=== PATIENT | male | born 1955 | race Caucasian/White ===

== ENCOUNTER 2023-03-12 08:05 | Day surgery (SDC) | payer MEDICARE ==
[2023-03-05 13:26] VITALS: BMI 26.1
--- NOTE | 2023-03-12 07:47 | P.GSHP ---
History of Present Illness H&P Date: 03/12/23 CHIEF COMPLAINT: Colon screen HISTORY OF PRESENT ILLNESS: The patient is a 67-year-old male who presents for colon screen. Lower endoscopy was offered for further evaluation and management. PAST MEDICAL HISTORY: Please see list. PAST SURGICAL HISTORY: Please see list. MEDICATIONS: Please see list. ALLERGIES: Please see list. SOCIAL HISTORY: No illicit drug use FAMILY HISTORY: No reports of Crohn disease or ulcerative colitis. REVIEW OF ORGAN SYSTEMS: CONSTITUTIONAL: No reports of fevers or chills. PHYSICAL EXAM: VITAL SIGNS: Stable GENERAL: Well-developed pleasant in no acute distress. HEENT: No scleral icterus. Extraocular movements grossly intact. Moist buccal mucosa. NECK: Supple without lymphadenopathy. CHEST: Unlabored respirations. Equal bilateral excursions. CARDIOVASCULAR: Regular rate and rhythm. Distal 2+ pulses. ABDOMEN: Soft, nontender, nondistended. MUSCULOSKELETAL: No clubbing, cyanosis, or edema. ASSESSMENT: 1. Colon screen. PLAN: 1. Recommend proceeding with a lower endoscopy Past Medical History Past Medical History: Thyroid Disorder Additional Past Medical History / Comment(s): crohns diseasem ,tinnitus ,and menieres disease, may have a cataracy History of Any Multi-Drug Resistant Organisms: None Reported Past Surgical History: Hernia Repair Past Anesthesia/Blood Transfusion Reactions: No Reported Reaction Additional Past Anesthesia/Blood Transfusion Reaction / Comment(s): no blood transfusion Smoking Status: Former smoker - Past Family History Mother Family Medical History: Cancer Additional Family Medical History / Comment(s): colon Medications and Allergies Home Medications Medication Instructions Recorded Confirmed Type Iron 18 mg PO DAILY 03/05/23 03/05/23 History Levothyroxine Sodium 25 mcg PO DAILY 03/05/23 03/05/23 History Loperamide [Imodium] 2 mg PO DAILY 03/05/23 03/05/23 History Multivitamin [Multivitamins Adult 1 each PO DAILY 03/05/23 03/05/23 History Gummies] Naproxen Sodium [Aleve] 220 mg PO DAILY 03/05/23 03/05/23 History Allergies Allergy/AdvReac Type Severity Reaction Status Date / Time No Known Allergies Allergy Verified 03/05/23 13:05
[~2023-03-12 08:05] MED LIST: LACTATED RINGERS 1,000 ML IV SCH
[2023-03-12] MEDS ORDERED: LACTATED RINGERS 1,000 ML IV ONE (08:21)
[2023-03-12 08:40] VITALS: TEMP 97.9
[2023-03-12] MEDS ORDERED: PROPOFOL 10 MG/ML 20 ML VIAL IV ONE (09:09)
--- NOTE | 2023-03-12 10:12 | P.PCN ---
Date of Procedure: 03/12/23 Description of Procedure: PREOPERATIVE DIAGNOSIS: Abnormal stool test, Cologuard Crohn's disease POSTOPERATIVE DIAGNOSIS: Tubular adenoma appendix Tubular adenoma ascending colon Sigmoid diverticulosis Crohn's disease OPERATION: Colonoscopy to the ileocecal valve and appendiceal orifice, cecum Colonoscopy with hot snare polypectomy SURGEON: Daisy Chahal MD. ANESTHESIA: MAC. INDICATIONS: The patient is an 67-year-old male who presents with normal stool test and Crohn's disease. Benefits and risks were described and informed consent was obtained. DESCRIPTION OF PROCEDURE: The patient had undergone Golytely prep. The patient had been brought into the operating room and laid in the left lateral decubitus position. After adequate intravenous sedation, the rectum was examined with 2% lidocaine jelly. The prostate was unremarkable. External hemorrhoids were encountered. The rectal to ne was within normal limits. No lesions were palpated in the rectal vault. An Olympus colonoscope was advanced until the cecum, ileocecal valve and appendiceal orifice were clearly viewed. The prep was good. Sigmoid diverticulosis was encountered. Colonic polyps were found and removed. No evidence of focal colitis was found. Retroflexion of the scope demonstrated grade 2 internal hemorrhoids without active bleeding or inflammation. The colon was desufflated. The patient had tolerated the procedure well. Withdrawal time was over 6 minutes. FINDINGS: Aronchick preparation quality scale 2 (1-5) Internal hemorrhoids, grade 2 External hemorrhoids, grade 2. No arteriovenous malformations. Sigmoid diverticulosis Removal of 2 polyps: - Snare polypectomy appendiceal orifice, 3 mm tubulovillous adenoma - Snare polypectomy at ascending colon, 4 mm flat villous adenoma No focal colitis. RECOMMENDATIONS: Given severity of tubular adenomas, recommend repeat in 3 years, 2026 Plan - Discharge Summary Discharge Rx Participant: No New Discharge Prescriptions: Continue Levothyroxine Sodium 25 mcg PO DAILY Naproxen Sodium [Aleve] 220 mg PO DAILY Multivitamin [Multivitamins Adult Gummies] 1 each PO DAILY Loperamide [Imodium] 2 mg PO DAILY Iron 18 mg PO DAILY Discharge Medication List Iron 18 mg PO DAILY 03/05/23 [History] Levothyroxine Sodium 25 mcg PO DAILY 03/05/23 [History] Loperamide [Imodium] 2 mg PO DAILY 03/05/23 [History] Multivitamin [Multivitamins Adult Gummies] 1 each PO DAILY 03/05/23 [History] Naproxen Sodium [Aleve] 220 mg PO DAILY 03/05/23 [History] Follow up Appointment(s)/Referral(s): Daisy Chahal MD [STAFF PHYSICIAN] - As Needed Patient Instructions/Handouts: Moderate Sedation (ED), Colorectal Polyps (GEN) Activity/Diet/Wound Care/Special Instructions: Repeat colonoscopy 3 years, 2026 Discharge Disposition: HOME SELF-CARE
[2023-03-12 10:15] VITALS: BP 123/72; PULSE 64; RESP 16
== END 2023-03-12 10:26 | disposition home or self-care (01) ==
LOC: ORWHC2ENDO 08:05
PROVIDERS: ATTEND Surgery Plastic and Reconstructive Surgery
DX: D12.2 Benign neoplasm of ascending colon (principal); K57.30 Diverticulosis of large intestine without perforation or abscess without bleeding; K50.90 Crohn's disease, unspecified, without complications; K64.1 Second degree hemorrhoids; K64.4 Residual hemorrhoidal skin tags; E07.9 Disorder of thyroid, unspecified; F12.90 Cannabis use, unspecified, uncomplicated; H93.19 Tinnitus, unspecified ear; H81.09 Meniere's disease, unspecified ear; Z87.891 Personal history of nicotine dependence; Z80.0 Family history of malignant neoplasm of digestive organs; Z79.890 Hormone replacement therapy; Z79.899 Other long term (current) drug therapy; Z98.890 Other specified postprocedural states
CPT/HCPCS: 88305; 45385; J2704